=== PATIENT | female | born 1975 | race Caucasian/White ===

== ENCOUNTER → 2024-12-01 09:03 | Outpatient (REF) | payer BC, SELFPAY | LOC: WDC 09:03 | PROVIDERS: ATTENDING PHYSICIAN Physician Assistant | DX: N63.22 Unspecified lump in the left breast, upper inner quadrant (principal) | CPT/HCPCS: 76642; 77062; 77066 ==

== ENCOUNTER → 2024-12-06 07:40 | Outpatient (REF) | payer BC, SELFPAY ==
--- NOTE | 2024-12-06 14:52 | OID.BR.INTR ---
[facility] Breast Navigator - Initial
- -
Date of Contact: 12/06/24
Met with patient. Patient given written information on navigator service available at [facility]. Will follow up as needed per protocol.
== END ==
LOC: WDC 07:40
PROVIDERS: ATTENDING PHYSICIAN Physician Assistant
DX: N63.22 Unspecified lump in the left breast, upper inner quadrant (principal)
CPT/HCPCS: 88305; 19083; 88341; 88342; 88360; A4648

== ENCOUNTER → 2024-12-18 13:38 | Outpatient (REF) | payer BC, SELFPAY | LOC: MRI 3T 13:38 | PROVIDERS: ATTENDING PHYSICIAN Surgery | DX: C50.412 Malignant neoplasm of upper-outer quadrant of left female breast (principal); Z17.1 Estrogen receptor negative status [ER-] | CPT/HCPCS: 77049; A9575 ==

== ENCOUNTER → 2024-12-19 08:25 | Outpatient (REF) | payer BC, SELFPAY | LOC: RAD 08:25 | PROVIDERS: ATTENDING PHYSICIAN Surgery | DX: C50.412 Malignant neoplasm of upper-outer quadrant of left female breast (principal); Z17.1 Estrogen receptor negative status [ER-] | CPT/HCPCS: 71260; 74177; 78306; A9503; Q9967 ==

== ENCOUNTER 2024-12-26 06:21 | Day surgery (SDC) | payer BC, SELFPAY ==
[2024-12-25 13:40] VITALS: BMI 28.1
[2024-12-26] MEDS: NSS 1000 IV (12:32)
[2024-12-26 12:34] VITALS: BMI 28.1
[2024-12-26 12:42] VITALS: BP 126/74
--- NOTE | 2024-12-26 13:47 | PTCARENOTE ---
Patients second IVF bolus not hung because 1st IVF bolus was not completed. The patient was taken to the OR without getting signout from [facility]. [facility] told the OR that they need to speak with Dr. Mae about what to do about giving patient
the second bolus.
[2024-12-26 14:30] VITALS: BP 126/74; BP 126/75
--- NOTE | 2024-12-26 14:35 | W.IMMPOSTOP ---
Surgical Immed Post Op Note
-
Primary Surgeon: Carmelita
Assisting Surgeon: None
Pre-op Diagnosis: Left breast ca
Post-op Diagnosis: Same
Procedure Performed: Insertion right portacath
Anesthesia Type: TIVA
Specimen / Cultures: None
Estimated Blood Loss: 4cc
Complications: None
Operative Findings: None
--- NOTE | 2024-12-26 14:37 | OR.RPT ---
Operative Report
Operative Report
Date of surgery: 12/26/24
Pre-Op DX: Left breast ca
Post-Op DX: Left breast ca
Procedure: Insertion right portacath
Surgeon: Carmelita
The patient is a 49-year-old female with a new diagnosis of left breast carcinoma for which she will undergo neoadjuvant chemotherapy and who presents for insertion of right Port-A-Cath.
The patient presented to the same-day surgical services area where she was prepped for surgery. She verified site and procedure and DVT and antibiotic prophylaxis were provided.
She was taken to the operating room and in the supine position with shoulder roll in place right chest and neck were prepped and draped in usual sterile fashion. Appropriate timeout was performed by all staff. All tissues were anesthetized with 1%
lidocaine plain.
Patient was placed in Trendelenburg position and via Seldinger technique right subclavian vein was entered percutaneously on the third attempt. Guidewire was advanced into the superior vena cava and documented verified using fluoroscopy. The wire
was securely attached to the drapes and an inferior subcutaneous pocket fashion sharply and with the cautery was formed. A single lumen low-profile port cath flushed with heparinized saline was passed placed in the pocket. Catheter was cut to
length of 21 cm using fluoroscopic guidance securely attached to the port and passed to the exit site of the guidewire.
Using fluoroscopic guidance the catheter the guidewire tract was dilated. Then dilator and sheath were passed over the wire. Wire and dilator were removed and the catheter was passed through the tear-away sheath which was removed. Good position
of the tip of the catheter in the superior superior vena cava was noted. The port aspirated and flushed well. She was taken out of Trendelenburg position and subcutaneous tissues were instilled with 0.5% Marcaine plain.
The wound was closed using simple interrupted 3-0 plain on subcutaneous tissue and a running subcuticular 4-0 Monocryl on skin. Surgical glue and a sterile compressive dressing were applied. All sponge needle and instrument counts were correct and
the patient was transferred to the recovery room in stable condition. A stat portable chest x-ray will be obtained on that unit.
([id number])
[2024-12-26 15:00] VITALS: BP 131/80
[2024-12-26 15:15] VITALS: BP 126/72
== END 2024-12-26 15:47 | disposition home or self-care (01) ==
LOC: SDS 06:21
PROVIDERS: ATTENDING PHYSICIAN Surgery
DX: C50.912 Malignant neoplasm of unspecified site of left female breast (principal)
CPT/HCPCS: 36561; 71045; 76000; C1788

== ENCOUNTER → 2025-01-01 10:17 | Outpatient (REF) | payer BC, SELFPAY | LOC: RCS 10:17 | PROVIDERS: ATTENDING PHYSICIAN Internal Medicine Hematology & Oncology; FAMILY PHYSICIAN Family Medicine | DX: C50.112 Malignant neoplasm of central portion of left female breast (principal); R91.1 Solitary pulmonary nodule | CPT/HCPCS: 93306; 93356 ==

== ENCOUNTER 2025-01-08 06:20 | Day surgery (SDC) | payer BC, SELFPAY ==
[2025-01-03 11:57] LABS: INR 0.89; PT 12.6 Sec (11.4-14.6)
[2025-01-03 11:58] LABS: APTT 28.2 Sec (23.4-35.0)
[2025-01-03 14:14] VITALS: BMI 28.3
[2025-01-08] VITALS (10 sets, daily range): BP systolic 123–142; BP diastolic 68–100; BMI 28.2
== END 2025-01-08 16:10 | disposition home or self-care (01) ==
LOC: GI 06:20
PROVIDERS: ATTENDING PHYSICIAN Internal Medicine Critical Care Medicine; FAMILY PHYSICIAN Family Medicine
DX: R91.1 Solitary pulmonary nodule (principal); C34.32 Malignant neoplasm of lower lobe, left bronchus or lung
CPT/HCPCS: 31629; 31628; 31624; 31623; 31627; 31654; 88173; 88305; 36415; 71045; 76000; 81459; 85610; 85730; 87015; 87070; 87102; 87116; 87205; 88112; 88333; 88341; 88342; 94640; C1887

== ENCOUNTER → 2025-01-10 08:10 | Outpatient (REF) | payer BC, SELFPAY ==
[2025-01-10 09:59] LABS: % Basophils 0.9 % (0-2); % Eosinophils 1.2 % (0-6); % Immature Granulocytes 0.5 % (0-0.5); % Lymphocytes 31.5 % (20.5-51.1); % Monocytes 4.7 % (1.7-9.3); % Neutrophils 61.2 % (42.2-75.2); Absolute Basophils 0.1 10^3/uL (0-0.2); Absolute Eosinophils 0.1 10^3/uL (0-0.7); Absolute Lymphocytes 2.5 10^3/uL (1.2-3.4); Absolute Monocytes 0.4 10^3/uL (0.1-0.6); Absolute Neutrophils 4.9 10^3/uL (1.4-6.5); Hematocrit 38.6 % (37.0-47.0); Hemoglobin 12.6 g/dL (12.0-16.0); Mean Corp Hgb Conc. 32.6 g/dL (33.0-37.0); Mean Corpuscular Hgb 28.6 pg (27.0-31.0); Mean Corpuscular Volume 87.7 fL (81.0-99.0); Mean Platelet Volume 9.8 fL (7.4-10.4); Nucleated Red Blood Cells % 0 %; Platelet Count 358 10^3/uL (130-400); Red Cell Dist. Width 13.7 % (11.5-14.5)
[2025-01-10 11:10] LABS: ALT (SGPT) 26 U/L (0-35); AST (SGOT) 19 U/L (14-36); Albumin 4.5 g/dl (3.5-5.0); Alkaline Phosphatase 61 U/L (38-126); Blood Urea Nitrogen 12 mg/dl (7-17); Calcium 9.1 mg/dl (8.4-10.2); Carbon Dioxide 24 mmol/L (22-30); Chloride 106 mmol/L (98-107); Glucose 89 mg/dl (70-99); Potassium 4.5 mmol/L (3.5-5.1); Sodium 142 mmol/L (135-145); Total Bilirubin 0.5 mg/dl (0.2-1.3); Total Protein 6.9 g/dl (6.3-8.2); eGFR > 60.00
== END ==
LOC: REG 08:10
PROVIDERS: ATTENDING PHYSICIAN Internal Medicine Hematology & Oncology; FAMILY PHYSICIAN Family Medicine
DX: C50.112 Malignant neoplasm of central portion of left female breast (principal); R91.1 Solitary pulmonary nodule
CPT/HCPCS: 36415; 80053; 85025

== ENCOUNTER → 2025-01-30 14:26 | Outpatient (REF) | payer BC, SELFPAY ==
[2025-01-30 15:43] LABS: % Basophils 0.6 % (0-2); % Eosinophils 0.2 % (0-6); % Immature Granulocytes 0.5 % (0-0.5); % Monocytes 5.3 % (1.7-9.3); % Neutrophils 73.4 % (42.2-75.2); Absolute Basophils 0.1 10^3/uL (0-0.2); Absolute Lymphocytes 1.8 10^3/uL (1.2-3.4); Absolute Monocytes 0.5 10^3/uL (0.1-0.6); Absolute Neutrophils 6.4 10^3/uL (1.4-6.5); Hematocrit 33.6 % (37.0-47.0); Hemoglobin 10.9 g/dL (12.0-16.0); Mean Corp Hgb Conc. 32.4 g/dL (33.0-37.0); Mean Corpuscular Hgb 28.5 pg (27.0-31.0); Mean Platelet Volume 9.8 fL (7.4-10.4); Nucleated Red Blood Cells % 0 %; Platelet Count 385 10^3/uL (130-400); Red Blood Cell Count 3.82 10^6/uL (4.20-5.40); Red Cell Dist. Width 14.2 % (11.5-14.5); White Blood Cell Count 8.7 10^3/uL (4.8-10.8)
[2025-01-30 15:57] LABS: ALT (SGPT) 24 U/L (0-35); AST (SGOT) 17 U/L (14-36); Albumin 3.8 g/dl (3.5-5.0); Alkaline Phosphatase 62 U/L (38-126); Blood Urea Nitrogen 11 mg/dl (7-17); Calcium 9.2 mg/dl (8.4-10.2); Carbon Dioxide 29 mmol/L (22-30); Chloride 111 mmol/L (98-107); Glucose 103 mg/dl (70-99); Potassium 4.5 mmol/L (3.5-5.1); Sodium 143 mmol/L (135-145); Total Bilirubin 0.3 mg/dl (0.2-1.3); eGFR > 60.00
== END ==
LOC: REG 14:26
PROVIDERS: ATTENDING PHYSICIAN Internal Medicine Hematology & Oncology; FAMILY PHYSICIAN Physician Assistant
DX: C50.112 Malignant neoplasm of central portion of left female breast (principal); R91.1 Solitary pulmonary nodule
CPT/HCPCS: 36415; 80053; 85025

== ENCOUNTER → 2025-02-21 09:18 | Outpatient (REF) | payer BC, SELFPAY ==
[2025-02-21 10:53] LABS: % Basophils 0.4 % (0-2); % Eosinophils 0.4 % (0-6); % Immature Granulocytes 0.4 % (0-0.5); % Lymphocytes 20.8 % (20.5-51.1); % Monocytes 5.3 % (1.7-9.3); % Neutrophils 72.7 % (42.2-75.2); Absolute Lymphocytes 1.1 10^3/uL (1.2-3.4); Absolute Monocytes 0.3 10^3/uL (0.1-0.6); Hematocrit 34.4 % (37.0-47.0); Hemoglobin 11.2 g/dL (12.0-16.0); Mean Corp Hgb Conc. 32.6 g/dL (33.0-37.0); Mean Corpuscular Hgb 29.2 pg (27.0-31.0); Mean Corpuscular Volume 89.6 fL (81.0-99.0); Mean Platelet Volume 9.6 fL (7.4-10.4); Nucleated Red Blood Cells % 0 %; Platelet Count 348 10^3/uL (130-400); Red Blood Cell Count 3.84 10^6/uL (4.20-5.40); Red Cell Dist. Width 15.9 % (11.5-14.5); White Blood Cell Count 5.4 10^3/uL (4.8-10.8)
[2025-02-21 11:21] LABS: ALT (SGPT) 29 U/L (0-35); AST (SGOT) 23 U/L (14-36); Albumin 4.2 g/dl (3.5-5.0); Alkaline Phosphatase 70 U/L (38-126); Blood Urea Nitrogen 13 mg/dl (7-17); Calcium 9.3 mg/dl (8.4-10.2); Carbon Dioxide 25 mmol/L (22-30); Chloride 108 mmol/L (98-107); Glucose 106 mg/dl (70-99); Potassium 4.4 mmol/L (3.5-5.1); Sodium 140 mmol/L (135-145); Total Bilirubin 0.5 mg/dl (0.2-1.3); Total Protein 6.4 g/dl (6.3-8.2); eGFR > 60.00
== END ==
LOC: REG 09:18
PROVIDERS: ATTENDING PHYSICIAN Internal Medicine Hematology & Oncology; FAMILY PHYSICIAN Physician Assistant
DX: C50.112 Malignant neoplasm of central portion of left female breast (principal); R91.1 Solitary pulmonary nodule
CPT/HCPCS: 36415; 80053; 85025

== ENCOUNTER → 2025-03-07 10:34 | Outpatient (REF) | payer BC, SELFPAY | LOC: RAD 10:34 | PROVIDERS: ATTENDING PHYSICIAN Internal Medicine Hematology & Oncology; FAMILY PHYSICIAN Physician Assistant | DX: C50.112 Malignant neoplasm of central portion of left female breast (principal); R91.1 Solitary pulmonary nodule; C34.12 Malignant neoplasm of upper lobe, left bronchus or lung | CPT/HCPCS: 71260; Q9967 ==

== ENCOUNTER → 2025-03-13 14:26 | Outpatient (REF) | payer BC, SELFPAY ==
[2025-03-13 15:39] LABS: % Basophils 0.5 % (0-2); % Eosinophils 0.2 % (0-6); % Immature Granulocytes 0.2 % (0-0.5); % Lymphocytes 28.1 % (20.5-51.1); % Monocytes 5.5 % (1.7-9.3); % Neutrophils 65.5 % (42.2-75.2); Absolute Lymphocytes 1.6 10^3/uL (1.2-3.4); Absolute Monocytes 0.3 10^3/uL (0.1-0.6); Absolute Neutrophils 3.7 10^3/uL (1.4-6.5); Hematocrit 29.4 % (37.0-47.0); Hemoglobin 10.1 g/dL (12.0-16.0); Mean Corp Hgb Conc. 34.4 g/dL (33.0-37.0); Mean Corpuscular Volume 87.2 fL (81.0-99.0); Nucleated Red Blood Cells % 0 %; Platelet Count 198 10^3/uL (130-400); Red Blood Cell Count 3.37 10^6/uL (4.20-5.40); Red Cell Dist. Width 17.5 % (11.5-14.5); White Blood Cell Count 5.6 10^3/uL (4.8-10.8)
[2025-03-13 15:58] LABS: ALT (SGPT) 26 U/L (0-35); AST (SGOT) 24 U/L (14-36); Albumin 4.2 g/dl (3.5-5.0); Alkaline Phosphatase 62 U/L (38-126); Blood Urea Nitrogen 9 mg/dl (7-17); Calcium 8.9 mg/dl (8.4-10.2); Carbon Dioxide 26 mmol/L (22-30); Chloride 109 mmol/L (98-107); Glucose 104 mg/dl (70-99); Potassium 3.9 mmol/L (3.5-5.1); Sodium 142 mmol/L (135-145); Total Bilirubin 0.5 mg/dl (0.2-1.3); Total Protein 6.1 g/dl (6.3-8.2); eGFR > 60.00
== END ==
LOC: REG 14:26
PROVIDERS: ATTENDING PHYSICIAN Internal Medicine Hematology & Oncology; FAMILY PHYSICIAN Physician Assistant
DX: C50.112 Malignant neoplasm of central portion of left female breast (principal); R91.1 Solitary pulmonary nodule
CPT/HCPCS: 36415; 80053; 85025

== ENCOUNTER → 2025-03-28 09:33 | Outpatient (REF) | payer BC, SELFPAY | LOC: RCS 09:33 | PROVIDERS: ATTENDING PHYSICIAN Internal Medicine Cardiovascular Disease; FAMILY PHYSICIAN Family Medicine | DX: Z85.3 Personal history of malignant neoplasm of breast (principal); C34.92 Malignant neoplasm of unspecified part of left bronchus or lung; T45.1X5D Adverse effect of antineoplastic and immunosuppressive drugs, subsequent encounter | CPT/HCPCS: 93306; 93356 ==

== ENCOUNTER → 2025-04-04 11:49 | Outpatient (REF) | payer BC, SELFPAY ==
[2025-04-04 12:42] LABS: Hematocrit 30.0 % (37.0-47.0); Hemoglobin 9.8 g/dL (12.0-16.0); Mean Corp Hgb Conc. 32.7 g/dL (33.0-37.0); Mean Corpuscular Volume 94.9 fL (81.0-99.0); Platelet Count 238 10^3/uL (130-400); Red Cell Dist. Width 19.1 % (11.5-14.5)
[2025-04-04 12:43] LABS: Nucleated Red Blood Cells % 0 %
[2025-04-04 13:16] LABS: ALT (SGPT) 35 U/L (0-35); AST (SGOT) 25 U/L (14-36); Albumin 4.3 g/dl (3.5-5.0); Alkaline Phosphatase 68 U/L (38-126); Blood Urea Nitrogen 8 mg/dl (7-17); Calcium 9.3 mg/dl (8.4-10.2); Carbon Dioxide 27 mmol/L (22-30); Chloride 108 mmol/L (98-107); Glucose 107 mg/dl (70-99); Potassium 4.5 mmol/L (3.5-5.1); Sodium 139 mmol/L (135-145); Total Protein 6.5 g/dl (6.3-8.2); eGFR > 60.00
== END ==
LOC: REG 11:49
PROVIDERS: ATTENDING PHYSICIAN Internal Medicine Hematology & Oncology; FAMILY PHYSICIAN Physician Assistant
DX: C50.112 Malignant neoplasm of central portion of left female breast (principal); R91.1 Solitary pulmonary nodule
CPT/HCPCS: 36415; 80053; 85025

== ENCOUNTER → 2025-05-02 09:49 | Outpatient (REF) | payer BC, SELFPAY ==
[2025-05-02 11:00] LABS: Hematocrit 32.3 % (37.0-47.0); Hemoglobin 10.6 g/dL (12.0-16.0); Mean Corp Hgb Conc. 32.8 g/dL (33.0-37.0); Mean Corpuscular Volume 98.2 fL (81.0-99.0); Platelet Count 243 10^3/uL (130-400); Red Cell Dist. Width 17.2 % (11.5-14.5)
[2025-05-02 11:47] LABS: Nucleated Red Blood Cells % 0 %
== END ==
LOC: REG 09:49
PROVIDERS: ATTENDING PHYSICIAN Thoracic Surgery (Cardiothoracic Vascular Surgery)
DX: Z01.818 Encounter for other preprocedural examination (principal)
CPT/HCPCS: 36415; 85025

== ENCOUNTER 2025-05-09 05:10 | Inpatient (IN) | payer BC, SELFPAY ==
[2025-04-24 12:10] VITALS: BMI 27.9
[2025-04-24 12:49] LABS: Hematocrit 26.5 % (37.0-47.0); Hemoglobin 8.8 g/dL (12.0-16.0); Mean Corp Hgb Conc. 33.2 g/dL (33.0-37.0); Mean Corpuscular Volume 97.4 fL (81.0-99.0); Nucleated Red Blood Cells % 0 %; Platelet Count 177 10^3/uL (130-400); Red Cell Dist. Width 19.3 % (11.5-14.5)
[2025-04-24 13:02] LABS: INR 0.94; PT 12.9 Sec (11.4-14.6)
[2025-04-24 13:18] LABS: Urine Character Clear (Clear)
--- NOTE | 2025-04-24 13:26 | CM ---
Met with Mrs. Landeros in [facility]. She states prior to admission she resides with her spouse and three children in a two story home with two steps to enter. She states she has a full flight of steps to get to bedroom/full bathroom. She states she has
a powder room on the first floor. She states prior to admission she was independent with ambulation and adls. She states she does not have any DME in the home. She states she has a prescription plan. She states her spouse works from home and will
be available to assist in her care if needed. The discharge plan is to return home with her spouse and children ans a home visit by the Transitional Care Nurse when medically stable.
We reviewed pre-op and post-op routines. We reviewed the shower instructions. She has the soap and written instructions. She already has the Thoracic Lung Surgery Educational Booklet. We also reviewed restrictions including driving and lifting
restrictions. We discussed a home visit by the Transitional Care Nurse. She is agreeable to a home visit. The plans is for robotic assisted left lower lobectomy on 05/09/25.
[2025-04-24 14:13] LABS: Glycohemoglobin (HgbA1c) 5.5 % (4.0-5.6)
[2025-04-24 16:15] LABS: ALT (SGPT) 35 U/L (0-35); AST (SGOT) 29 U/L (14-36); Albumin 3.9 g/dl (3.5-5.0); Alkaline Phosphatase 71 U/L (38-126); Blood Urea Nitrogen 9 mg/dl (7-17); Calcium 8.6 mg/dl (8.4-10.2); Carbon Dioxide 27 mmol/L (22-30); Chloride 106 mmol/L (98-107); Estimated Creatinine Clearance 109 ml/min; Glucose 96 mg/dl (70-99); Potassium 4.3 mmol/L (3.5-5.1); Sodium 139 mmol/L (135-145); Total Protein 5.9 g/dl (6.3-8.2); eGFR > 60.00
[2025-05-09] VITALS (14 sets, daily range): BP systolic 115–143; BP diastolic 65–82; BMI 28.5
--- NOTE | 2025-05-09 05:30 | PTCARENOTE ---
pt admitted into room 2260, VS and weight obtained. pt confirms 2 showers at home and NPO since midnight. clip prep completed, CHG wipes done. ABO drawn and sent. admission questions and med rec completed. pt confirms she takes no medications at
home and her last chemotherapy treatment was 2 weeks ago.
[2025-05-09] MEDS: IMODIUM 2 MG PO (06:12)
--- NOTE | 2025-05-09 06:16 | W.CVOR.SURPR ---
CVOR Surgeon Immed Pre Op
-
I have examined this patient prior to performance of the scheduled procedure.
The patient's condition is unchanged from the time of the dictated/written History and
Physical and the patient is able to undergo the scheduled procedure.
RATS LLL Sup Seg + LN
[2025-05-09 07:19] LABS: Urine Character Clear (Clear)
--- NOTE | 2025-05-09 09:29 | W.PN.CT.SURG ---
CT Surgery Operative Note
-
THORACIC SURGERY OPERATIVE REPORT
Preoperative Diagnosis: Primary lung cancer, adenocarcinoma
Postoperative Diagnosis: Same
Procedure(s) Performed:
1. Robotic assisted thoracic surgery [R ATS]
2. Superior segmentectomy [S6] of the left lower lobe based on ICG demarcated perfusion lines
3. Radical lymphadenectomy
4. Intercostal nerve block performed by anesthesia
Date of Surgery: 05/09/2025
Comorbidities:
1. Breast cancer, on chemotherapy and immunotherapy
2. Primary lung cancer
3. Psoriasis
4. Postchemotherapy cytopenia
Attending Surgeon: Kvng Richter MD, MS
Assistants: Kimberly Ramirez PA-C (present and necessary to trust administrative assistant, exchanging robotic instruments, retraction, suction, exposure, suture management, and wound closure under my direction)
Anesthesiology: Gregg Mariscal MD and Cherie Cummins CRNA
Scrub and Circulating RNs: Marta Rivers RN, Yudith Shankar RN
Anesthesia: Dual Lumen GETA
EBL: 50 cc
Products: None
Indication(s) for Procedures: This is a 49-year-old female who was diagnosed with HER2 positive breast cancer as well as a primary non-small cell lung cancer of the left lower lobe in the superior segment. She had undergone treatment for her breast
cancer including immunotherapy and chemotherapy preoperatively. She was planned for staged lung resection first and then follow-up resection for her breast cancer. Given the location and size of the mass located in the periphery in the superior
segment the left lower lobe, I offered her segmentectomy.
Findings: There were no obvious intrathoracic lesions concerning for metachronous disease. She had a well-developed fissure. Lymph nodes were harvested around the hilum and in the fissure. There were 2 main branches leading to the superior
segment of the left lower lobe coming off the basilar pulmonary artery. These were sequentially resected using white load staplers. Next ICG was then injected and by anesthesia transvenously and there was a well-demarcated ischemic perfusion line
of the superior segment (S6) of the left lower lobe. This was marked with bipolar cautery and using multiple loads of green staplers we resected along this line. The specimen was then placed into an Endo Catch bag and removed from the field.
Manual palpation of the mass demonstrated approximately 1 cm mass located the periphery of the lung tissue. The staple line margin was at least 3 cm away. Additional lymph nodes were then harvested. Hemostatic topical sealant was placed over top
of the staple line and hilum and a chest tube was placed. There is no air leak at the inclusion of the case and no loss of tidal volume.
Specimen(s):
Station 9, x 4 nodes
Station 10, x 3 nodes
Station 11S, x 2 nodes
Station 5/6, x 1 nodes
Superior segment the left lower lobe
Description of Procedure: The patient was taken to the operating room. Induction via general anesthesia with endotracheal intubation was performed and peripheral venous access and arterial monitoring were inserted. Their identity and procedure to be
performed were verified and they were positioned with the left side up on the operating table. The patient was then prepped and draped in a sterile fashion. A preoperative time-out was performed with all members of the team present. A Veress needle
was used to insufflate the chest after isolating the lung. An 8 mm port was placed in the midaxillary line at approximately the eighth intercostal space and confirmed to be intrathoracic without significant pulmonary injury. The chest was surveyed
for any evidence of metastatic disease. Patient tolerate insufflation without complication. 2 additional 12 mm trocars were placed on either side under camera guidance and a third 8 mm trocar was placed along the back. A 12 mm pediatric physician assistant port was
placed in the 11th intercostal space above the insertion of the diaphragm.
The thoracic cavity was inspected for evidence of metastatic disease. None was observed. We started with mobilization of the inferior pulmonary ligament. We worked our way clockwise dissecting out the hilum and harvest any lymph nodes identified.
I then dissected down the fissure the left upper and lower lobes. There were 2 major pulmonary arterial branches coming off the basilar artery heading towards the superior segment of the left lower lobe. These were sequentially
dissected and then encircled with a vessel loop and then taken with a white load stapler. At this point, ICG was then injected in by anesthesia transvenously and I observed for the margin indicated by perfusion lines demarcating an ischemic zone of
the left lower lobe at the superior segment. The mass was well incorporated into this ischemic zone. I then marked this area with bipolar cautery and firefly was then turned off. Using multiple green load staplers I then transected along this
demarcated line. The specimen was displaced toward the apex while a chest tube was inserted and placed laterally towards the apex. An Endo Catch bag was then brought into the field and the mass was fully removed from the chest cavity. Manual
palpation the mass demonstrated that it was located the periphery with at least a 3 cm margin from the staple line. CoSeal was used to reinforce the staple lines and hilum. After confirming hemostasis, the lung was fully inflated and all ports were
removed. Incisions were closed in 3 layers including the fascia, dermal, and epidermis. Additional local anesthesia was injected into all incision sites. The skin wound was cleansed and sealed with Dermabond glue.
All instrument, sponge, and needle counts were confirmed to be correct x 2 at the end of the operation. The patient was transferred to the cardiac intensive care unit extubated in critical but stable condition.
I, Dr. Kvng Richter, was present, scrubbed for, and performed all critical elements of this procedure.
Kvng Richter MD, MS
Cardiothoracic Surgeon
[facility]
This operative dictation was created using the Spondo dictation system. Please excuse any grammatical, typographical, or 'sound alike' errors
[2025-05-09] MEDS: ZOFRAN 4 MG IV (10:12)
[2025-05-09] MEDS: DILAUDID 0.5 MG IV ×2 (10:13→11:32)
[2025-05-09] MEDS: ANCEF IV (10:23)
--- NOTE | 2025-05-09 11:04 | CM ---
Chart reviewed. Patient is in the OR today. Patient is independent of ADLS, lives with her in a 3 STH, 2 ARLEN, 0 DME. Plan is for the patient to return home with CT Transitional RN. CM to follow
[2025-05-09] MEDS: FLEXERIL 5 MG PO (11:26)
[2025-05-09] MEDS: NEURONTIN 100 MG PO ×3 (11:27→21:25)
[2025-05-09] MEDS: ANCEF 10 IV (11:27)
[2025-05-09] MEDS: LOPRESSOR 12.5 MG PO ×2 (11:27→19:52)
[2025-05-09 11:39] LABS: B.E. - POC 2.5 mmol/L; Glucose - POC 101 mg/dl (70-99); HCO3 - POC 28 mmol/L (21-28); Hematocrit - POC 22 % PCV (37-47); Hemodilution- POC No; Hemoglobin Calculated - POC 7.4; Ionized Calcium - POC 1.13 mmol/L (1.15-1.33); Lactate - POC 0.52 mmol/L (0.36-0.75); O2 Saturation %Calculated-POC 99.9 % (94-98); PCO2 - POC 44 mmHg (35-48); PO2 - POC 283 mmHg (83-108); Potassium - POC 2.6 mmol/L (3.5-5.1); Sodium - POC 145 mmol/L (136-145); Specimen Type - POC Arterial; pH - POC 7.40 (7.35-7.45)
--- NOTE | 2025-05-09 11:52 | PTCARENOTE ---
Received pt to room from PACU. AAO x 3 , drowsy but appropriate. SR on monitor. 2 L NC 99%. Rt radial A line transduced, re leveled, recalibrated, and flushed. Lt lateral chest tube to water seal. No air leak or crepitus noted. Pulses
palpable. C/o pain at chest tube site. Medicated as able.
--- NOTE | 2025-05-09 13:10 | CON.INTV ---
Consultation
Consultation Request
Date/Time Consultation Requested: 05/09
Date/Time Consultation Performed: 05/09
Reason for Consultation: Postthoracotomy, pulmonary
Medical History
-
History of Present Illness:
History primarily obtained from the records as patient is currently postoperative, but some history also obtained from the patient. Patient is a pleasant 49-year-old female with history of left breast cancer, initially diagnosed as stage IIa, HER2
positive/ER/OR negative. She was noted to have a 1.1 cm left lower lobe nodule PET avid. She underwent bronchoscopy in December which identified lung cancer, lipidic pattern, early stage, no mediastinal involvement, no metastatic disease. She
initially underwent treatment with carboplatin/Taxotere which was completed April 26. She is now status post robotic assisted thoracic surgery with left lower lobe superior segmentectomy and lymph node dissection 05/09 without complications. We are
asked to help from pulmonary standpoint
Presently primary complaint is pain otherwise she denies shortness of breath, nausea. Family at bedside
.
[facility] left breast cancer stage IIa status post chemotherapy from December to April of 2025. History of psoriasis. , tubal ligation, miscarriage, ovarian cyst removal, tonsillectomy. Right port placement December 2024
Past Medical History
Past Medical History: None (See above)
Past Surgical History: None (See above)
Social History
Tobacco: Non-smoker
Alcohol: Occasional
Drug: None
Personal:
Living: With Family
Employment: Not Employed
Family History
Family History: Other (Father with history of pancreatic cancer, paternal grandmother with history of lung cancer/mesothelioma, maternal grandmother with ovarian cancer, sister with cervical cancer.)
Allergies / Home Medications
Allergies
Allergy/AdvReac Type Severity Reaction Status Date / Time
No Known Allergies Allergy Verified 04/20/25 13:31
Home Medications
�Medication �Instructions �Recorded �Confirmed �Last Taken �Type
valacyclovir 1 gram tablet 1,000 mg PO PRN PRN Break out 12/25/24 04/20/25 01/01/25 History
(Valtrex)
dexamethasone 1 dose PO PRN PRN pre and post 04/20/25 04/20/25 Unknown History
chemo
Review of Systems
-
All other systems: Negative unless noted
Vitals / Labs / Diagnostic Testing
Vital Signs
Temp Pulse Resp BP Pulse Ox
97.6 F 75 0 118/72 98
05/09/25 11:36 05/09/25 12:15 05/09/25 12:15 05/09/25 12:00 05/09/25 12:15
Lab Data
04/24/25 12:20
04/24/25 12:20
Diagnostic Testing:
Physical Exam
-
HEENT: Normocephalic and Anicteric
Cardiovascular: S1/S2, Regular Rhythm and Murmur (n)
Respiratory: Wheeze (n), Rales (n), Rhonchi (n) and Non-Labored Respirations
GI: Soft, Non Distended and Non Tender
Neurology: Awake, Alert and No Motor Deficits (Moves extremities)
Skin: Other (Chest tube in place)
General: Comfortable
Assessment
-
49-year-old female with history of left breast cancer stage II, ER/OR negative, HER2 positive, status post RATS left lower lobe segmentectomy for pulmonary adenocarcinoma 05/09/2025
S/p RATS left lower lobe segmentectomy 05/09/2025
Pulmonary adenocarcinoma per robotic bronchoscopy December 2024
1.1 cm nodule left lower lobe
Positive EGFR mutation
Conditions present prior to admission
History of miscarriage, D&C
History of pneumonia
Family history of cancer
Father with pancreatic cancer, PGM with lung cancer/mesothelioma, MGM with ovarian cancer, sister with cervical cancer
Positive CFTR mutation (autosomal recessive)
Plan/recommendations
At this time, patient remains critically ill but appears to be comfortable. Hemodynamically stable. Chest tube in place, minimal drainage
Chest x-ray without acute findings
Hemoglobin preoperatively 10.6
EKG preoperatively normal sinus rhythm
Moving forward
Continue with management per CT surgery
No pneumothorax per x-ray, chest tube in place
Follow hemoglobin, follow labs
Await final pathology. EGFR mutation noted on initial bronchoscopy December 2024
DVT prophylaxis: Subcutaneous heparin
We will follow
[2025-05-09] MEDS: HEPARIN 5000 UNITS SC ×2 (15:25→23:51)
[2025-05-09] MEDS: TYLENOL 1000 MG PO ×2 (15:25→21:25)
[2025-05-09] MEDS: ANCEF 5 IV ×2 (15:26→23:51)
--- NOTE | 2025-05-09 16:27 | PTCARENOTE ---
OOb x 1 assist, pt states general weakness but otherwise ok. Chest tube with minimal drainage at present. Able to void w/o issue. VSS. Tearful at times. VAT team called to access RT SQ port
[2025-05-09 16:32] LABS: Blood Urea Nitrogen 9 mg/dl (7-17); Calcium 8.1 mg/dl (8.4-10.2); Carbon Dioxide 24 mmol/L (22-30); Chloride 104 mmol/L (98-107); Estimated Creatinine Clearance > 125 ml/min; Glucose 150 mg/dl (70-99); Potassium 3.3 mmol/L (3.5-5.1); Sodium 138 mmol/L (135-145); eGFR > 60.00
[2025-05-09] MEDS: TORADOL 15 MG IV (17:27)
[2025-05-09] MEDS: KCL 40 MEQ PO (19:11)
--- NOTE | 2025-05-09 21:00 | PTCARENOTE ---
Assumed care of pt from dayshift RN. Walking rounds completed. Pt AAOx3. ABURTO. No significant pain at this time. SR on the tele monitor. HR 80-90s. BP stable. Palpable pulses throughout. No edema noted. Pt 95% on RA. Left lateral CT to water seal, no
airleak noted, and output appropriate. Left lung sounds diminished throughout. Deep breathing and IS encouraged. Abdomen nontender. +BS x4. Pt tolerating diet. Voiding w/o issue. Pt reports diarrhea from the night before but none today. All surgical
sites stable. Right upper chest subQ port accessed. All surgical sites stable. Pt assisted OOB to the bathroom and positioned back into bed. See worklist for full nursing assessment and interventions. Call woo within reach.
[2025-05-10] MEDS: FLEXERIL 5 MG PO (00:06)
--- NOTE | 2025-05-10 00:10 | PTCARENOTE ---
No acute change in assessment. Pt is SR on the tele monitor. HR 80s. BP stable. Left lateral CT assessment unchanged. Pt is 95% on RA. All surgical sites stable. Pt assisted OOB to void and then repositioned back into bed. Flexeril for pain - see
MAR. Call woo within reach.
[2025-05-10 04:29] VITALS: BP 143/89
[2025-05-10] MEDS: TORADOL 15 MG IV (04:32)
[2025-05-10 04:45] LABS: Hematocrit 24.3 % (37.0-47.0); Hemoglobin 8.2 g/dL (12.0-16.0); Mean Corp Hgb Conc. 33.7 g/dL (33.0-37.0); Mean Corpuscular Volume 98.4 fL (81.0-99.0); Platelet Count 101 10^3/uL (130-400); Red Cell Dist. Width 18.0 % (11.5-14.5)
[2025-05-10 04:49] VITALS: BMI 29.0
--- NOTE | 2025-05-10 04:58 | PTCARENOTE ---
No acute changes in assessment. Pt is SR on the tele monitor. HR 80s. BP stable. Pt is 95-96% on RA. Left lateral CT assessment unchanged. Labs drawn and sent. Toradol for pain - see NOV. Pt assisted OOB with stand-by assist and then repositioned
back into bed. Call woo within reach.
[2025-05-10 05:16] LABS: Blood Urea Nitrogen 12 mg/dl (7-17); Calcium 8.1 mg/dl (8.4-10.2); Carbon Dioxide 26 mmol/L (22-30); Chloride 108 mmol/L (98-107); Estimated Creatinine Clearance > 125 ml/min; Glucose 120 mg/dl (70-99); Magnesium 1.3 mg/dl (1.6-2.3); Potassium 3.5 mmol/L (3.5-5.1); Sodium 139 mmol/L (135-145); eGFR > 60.00
[2025-05-10] MEDS: TYLENOL 1000 MG PO (06:34)
--- NOTE | 2025-05-10 07:17 | W.PN.INTV ---
Today's Communication / Plan
Recommendations
Transfuse per CT surgery protocol
Pain control
Chest tube without airleak, small left-sided pneumothorax noted
Follow-up with Dr. Bianchi in the next 2 to 3 months
We will sign off. Please call with questions
Assessment
-
49-year-old female with history of left breast cancer stage II, ER/FL negative, HER2 positive, status post RATS left lower lobe segmentectomy for pulmonary adenocarcinoma 05/09/2025
S/p RATS left lower lobe segmentectomy 05/09/2025
Pulmonary adenocarcinoma per robotic bronchoscopy December 2024
1.1 cm nodule left lower lobe
Positive EGFR mutation
Postoperative anemia
Conditions present prior to admission
History of miscarriage, D&C
History of pneumonia
Family history of cancer
Father with pancreatic cancer, PGM with lung cancer/mesothelioma, MGM with ovarian cancer, sister with cervical cancer
Positive CFTR mutation (autosomal recessive)
Plan/recommendations
At this time, patient appears to be comfortable, on room air
Chest x-ray without acute findings
Hemoglobin preoperatively 10.6, currently 8.2
EKG preoperatively normal sinus rhythm
Chest x-ray without acute findings
no airleak with chest tube, small left-sided pneumothorax noted per chest x-ray
Moving forward
Continue with management per CT surgery
Chest tube management per surgery
Follow hemoglobin, transfuse per CT surgery protocol
Await final pathology. EGFR mutation noted on initial bronchoscopy December 2024
DVT prophylaxis: Subcutaneous heparin
Patient should follow-up with Dr. Binachi as previously scheduled
We will sign off. Please call with questions
Subjective Dataa
Subjective Data
Date of Service:
Date of Service: May 10, 2025
Subjective:
Patient is sitting in chair, appears to be comfortable. Denies significant shortness of breath. Pain is controlled. Denies nausea, abdominal pain. Presently on room air
Objective Data
Data Reviewed
Vital Signs / I&O / Oxygen:
Vital Signs
Temp Pulse Resp BP Pulse Ox
98.5 F 90 16 143/89 96
05/10/25 04:29 05/10/25 06:45 05/10/25 04:29 05/10/25 04:29 05/10/25 04:29
Intake and Output
05/09/25 05/10/25 05/11/25
06:59 06:59 06:59
Intake Total 1295 / 1295
Output Total 2470 / 2470
Balance -205 / -205 -1175 / -1175
SaO2 96
Nasal Cannula flow liters per 2
minute
Physical Exam
General: Comfortable
HEENT: Normocephalic and Anicteric
Cardiovascular: S1-S2, Regular Rhythm, Murmur (n), Rub (n) and Peripheral Edema (n)
Respiratory: Wheeze (n), Crackles (n), Rhonchi (n), Non-Labored Respirations and Chest Tube (No airleak)
GI: Soft, Non Distended and Non Tender
Neurology: Awake, Alert and No Motor Deficits
Skin: Cyanosis (n) and Rash (n)
Labs/Micro/Reports
Lab Data
05/10/25 04:39
05/10/25 04:39
--- NOTE | 2025-05-10 07:29 | W.PN.CT ---
Today's Communication / Plan
-
-pod #1
-no issues overnight, ambulated without problems
-L pleur CT on water seal, no air leak, put out 75/220 in 12/24 hrs
-follow CXR
-encourage IS
-ambulate
Assessment / Plan
-
- Primary lung cancer, adenocarcinoma- s/p Robotic assisted thoracic surgery [RATS]; Superior segmentectomy [S6] of the left lower lobe based on ICG demarcated perfusion lines; Radical lymphadenectomy by Dr. Richter on 05/09/25, pod #1
- Breast cancer, on chemotherapy and immunotherapy
- Primary lung cancer
- Psoriasis
- Postchemotherapy cytopenia
- Acute on chronic postop blood loss anemia
- Acute postop thrombocytopenia
- Acute postop hypokalemia
Discussed patient care with: Nursing and Care Team
Subjective
-
Date of Service: May 10, 2025
Objective Data
-
Lab Results
05/10/25 04:39
05/10/25 04:39
PT 12.9 Sec (11.4-14.6) 04/24/25 12:20
INR 0.94 04/24/25 12:20
Vital Signs
Vital Signs
Temp Pulse Resp BP Pulse Ox
98.5 F 90 16 143/89 96
05/10/25 04:29 05/10/25 06:45 05/10/25 04:29 05/10/25 04:29 05/10/25 04:[address]
CT Intake/Output/Weight
05/09/25 05/10/25 05/10/25
18:59 06:59 18:59
Intake Total 1295 / 1295
Output Total 945 / 2470 1525 / 2470
Balance 350 / -1175 -1525 / -1175
SaO2: 96
Physical Exam
-
General: Awake and AOx3
Cardiovascular: Regular rate & rhythm, No Murmurs and No Rub
Respiratory: Rhonchi (on L. No wheeze b/l) and Decreased Breath Sounds
Incision: Clean, Dry and Dressing Intact
Extremities: No Edema
Data Reviewed
-
Lab Results: Results Reviewed
Medications: Active Meds Reviewed
Chest X-Ray: Report Reviewed and Image Reviewed
ECG: Report Reviewed and Image Reviewed
[2025-05-10 07:52] VITALS: BP 126/76
[2025-05-10] MEDS: ANCEF 5 IV (07:55)
[2025-05-10] MEDS: HEPARIN 5000 UNITS SC (07:57)
[2025-05-10] MEDS: LOPRESSOR 12.5 MG PO (07:59)
[2025-05-10] MEDS: KCL 40 MEQ PO (07:59)
[2025-05-10] MEDS: NEURONTIN 100 MG PO (07:59)
--- NOTE | 2025-05-10 08:28 | PTCARENOTE ---
Assumed care of patient from career coordinator RN. AAO x 3 SR on monitor. Room air 98%, denies cough or sputum. Chest tube clamped per CT surgery. Denies significant pain at present. Pulses palpable. Plan for am discussed.
--- NOTE | 2025-05-10 10:53 | PTCARENOTE ---
Lt lateral chest tube removed by CT PRISM MEASURER, Pt tolerated w/o issue. Resting in bed after. VSS Assessment otherwise unchanged from prior.
[2025-05-10 11:50] VITALS: BP 110/65
--- NOTE | 2025-05-10 12:02 | PTCARENOTE ---
Ambulating at lucita in room w/o issue. Pain well managed. VSS. Assessment otherwise unchanged from prior.
--- NOTE | 2025-05-10 12:36 | CM ---
Chart reviewed. Patient is independent of ADLS, lives with her and 3 children in a 2 STH, 2 ARLEN, 0 DME. Plan is for the patient to return home with CT Transitional RN. CM to follow
--- NOTE | 2025-05-10 13:44 | W.DCSUMMARY ---
Discharge Summary
Discharge Data
Date of Admission: 05/09/25
Date of Discharge: 05/10/25
-
Pending Results: No
Hospital Course
Primary care physician: Erika Stuart
Outpatient laborer ammunition assembly: Polina See
Outpatient Oncologist: Cynthia Adams
Inpatient consultants: Pulmonary Referral Rn
Procedures:
1. RATS Superior segmentectomy [S6] of the left lower lobe based on ICG demarcated perfusion lines and radical lymphadenectomy
Primary Diagnosis:
1. Primary lung cancer, adenocarcinoma
Secondary Diagnoses:
1. Left Breast cancer, on chemotherapy and immunotherapy
2. Psoriasis
3. Postchemotherapy cytopenia
- Acute on chronic postop blood loss anemia
- Acute postop thrombocytopenia
- Acute postop hypokalemia
- Acute postop tiny left apical pneumothorax
HPI: 49-year-old female with known diagnosis of HER2 positive breast cancer (treated with carboplatin?/Taxotere/ Phesgo-last dose 04/26/25) as well as incidental finding on CT scan of primary non-small cell lung cancer left lower lobe superior
segment was admitted on 05/09/2025 for left lower lobe lobectomy.
Hospital course: Patient was taken to the operating room and underwent robotic assisted superior segmentectomy and radical lymphadenectomy by Dr. Kvng Richter. For further details please see operative note. She is extubated the operating room.
Chest tube placed to waterseal with no air leak noted. Arterial line was discontinued upon arrival to CVICU. Patient has stable night and chest tube was clamped on postoperative day #1. Beta-karyn was initiated for atrial fibrillation
prophylaxis. Repeat x-ray reported tiny left apical pneumothorax. Chest tube was removed and follow-up chest x-ray reported tiny left apical pneumothorax unchanged. Patient was deemed stable for discharge to home. She will have a follow-up chest
x-ray in 1 week.
Home medication changes:
Gabapentin, oxycodone, cyclobenzaprine for postop pain
Metoprolol for A-fib prophylaxis
Discharge Plan
-
Patient Disposition: Home (Routine Discharge)
Discharge Diagnosis/Procedures: RATS LLL superior segmentectomy (05/09/25)
Condition: Good
Diet: No restrictions
Activity: No strenuous activity
Driving Restrictions: Not until seen by your Dr
Bathing Restrictions: OK to Shower
Others Tests: CXR (PA & LAT) in 1 week
Referrals:
CT Transitional Care Nurse [Outside]
Referral Note: The Cardiothoracic Transitional Care Nurse will call you to set up a visit in 1-2 days.
Alberto Onofre MD [Active, Pulmonary Medicine]
Referral Note: 2-3 mo
Mally Cervantes PA [Family Provider, Family Practice]
Kvng Richter MD [Active, Cardiac Surgery] - 05/28/25 2:00 pm
Prescriptions:
New
acetaminophen 325 mg Tablet
650 mg PO Q4HPRN PRN (Reason: mild pain,headache,temp >101F ) Qty: 0 0RF
cyclobenzaprine 10 mg Tablet
5 mg PO Q8HPRN PRN (Reason: muscle spasm) Qty: 10 0RF
metoprolol succinate [Toprol XL] 25 mg tablet extended release 24 hr
25 mg PO DAILY Qty: 30 1RF
gabapentin 100 mg Capsule
100 mg PO TID Qty: 30 0RF
oxycodone 5 mg Tablet
2.5 mg PO Q4HPRN PRN (Reason: severe pain) Qty: 15 0RF
Continued
valacyclovir [Valtrex] 1 gram Tablet
1,000 mg PO PRN PRN (Reason: Break out)
dexamethasone
1 dose PO PRN PRN (Reason: pre and post chemo)
Rx Instructions:
Patient to bring medication information on 04/24/25
Discharge Orders:
Discharge Patient (As Directed); Ordered 05/10/25
Ordered By: Suly Saldaña
Care Plan Goals
Care Plan Goals:
Problem: Readiness for enhanced knowledge related to diagnosis and treatment plan
Goal: Understand your diagnosis and treatment plan needs, including medications if applicable.
Instructions: Know your diagnosis, underlying causes and treatment plan options, including medications if applicable. Consult with your health care team to learn about your diagnosis and treatment plan, including medications if applicable.
Discharge Date and Time
Print Language: NAURUAN
--- NOTE | 2025-05-10 15:16 | PTCARENOTE ---
Discharge instructions reviewed with PT , Questions answered, states understanding. Telemetry pack removed, SQ port de accessed by VAT team.
== END 2025-05-10 15:14 | disposition home or self-care (01) | DRG 164 ==
LOC: CVICU 05:10
PROVIDERS: Nurse Practitioner; ADMITTING PHYSICIAN Thoracic Surgery (Cardiothoracic Vascular Surgery); CONSULT PHYSICIAN Internal Medicine Critical Care Medicine; FAMILY PHYSICIAN Physician Assistant
PROC: 8E0W4CZ Robotic Assisted Procedure of Trunk Region, Percutaneous Endoscopic Approach (ICD-10-PCS; 2025-05-09)
PROC: 0BBJ4ZZ Excision of Left Lower Lung Lobe, Percutaneous Endoscopic Approach (ICD-10-PCS; 2025-05-09)
PROC: 07T74ZZ Resection of Thorax Lymphatic, Percutaneous Endoscopic Approach (ICD-10-PCS; 2025-05-09)
DX: C34.32 Malignant neoplasm of lower lobe, left bronchus or lung (principal); D62 Acute posthemorrhagic anemia; J95.811 Postprocedural pneumothorax; L40.9 Psoriasis, unspecified; C50.912 Malignant neoplasm of unspecified site of left female breast; D69.59 Other secondary thrombocytopenia; E87.6 Hypokalemia; Y84.8 Other medical procedures as the cause of abnormal reaction of the patient, or of later complication, without mention of misadventure at the time of the procedure; Z17.1 Estrogen receptor negative status [ER-]; Z17.22 Progesterone receptor negative status; Z17.31 Human epidermal growth factor receptor 2 positive status; Z79.899 Other long term (current) drug therapy; Z92.21 Personal history of antineoplastic chemotherapy; Z87.01 Personal history of pneumonia (recurrent); Z80.0 Family history of malignant neoplasm of digestive organs; Z80.49 Family history of malignant neoplasm of other genital organs; Z80.41 Family history of malignant neoplasm of ovary
CPT/HCPCS: 32505; 36415; 71045; 80048; 80053; 81003; 82248; 83036; 83735; 83880; 85025; 85027; 85610; 86850; 86900; 86901; 86920; 87070; 88305; 88307; 88313; 93005

== ENCOUNTER → 2025-05-16 11:30 | Outpatient (REF) | payer BC, SELFPAY ==
[2025-05-16 12:59] LABS: Hematocrit 28.9 % (37.0-47.0); Hemoglobin 9.4 g/dL (12.0-16.0); Mean Corp Hgb Conc. 32.5 g/dL (33.0-37.0); Mean Corpuscular Volume 102.8 fL (81.0-99.0); Nucleated Red Blood Cells % 0 %; Platelet Count 209 10^3/uL (130-400); Red Cell Dist. Width 17.5 % (11.5-14.5)
[2025-05-16 13:13] LABS: ALT (SGPT) 105 U/L (0-35); AST (SGOT) 52 U/L (14-36); Albumin 4.2 g/dl (3.5-5.0); Alkaline Phosphatase 147 U/L (38-126); Blood Urea Nitrogen 16 mg/dl (7-17); Calcium 9.5 mg/dl (8.4-10.2); Carbon Dioxide 27 mmol/L (22-30); Chloride 106 mmol/L (98-107); Glucose 103 mg/dl (70-99); Potassium 4.9 mmol/L (3.5-5.1); Sodium 139 mmol/L (135-145); Total Protein 6.5 g/dl (6.3-8.2); eGFR > 60.00
== END ==
LOC: REG 11:30
PROVIDERS: ATTENDING PHYSICIAN Internal Medicine Hematology & Oncology; FAMILY PHYSICIAN Physician Assistant
DX: C50.112 Malignant neoplasm of central portion of left female breast (principal); R91.1 Solitary pulmonary nodule; C34.12 Malignant neoplasm of upper lobe, left bronchus or lung
CPT/HCPCS: 36415; 80053; 85025

== ENCOUNTER → 2025-05-17 09:18 | Outpatient (REF) | payer BC, SELFPAY | LOC: RAD 09:18 | PROVIDERS: ATTENDING PHYSICIAN Thoracic Surgery (Cardiothoracic Vascular Surgery); FAMILY PHYSICIAN Physician Assistant | DX: C34.92 Malignant neoplasm of unspecified part of left bronchus or lung (principal) | CPT/HCPCS: 71046 ==

== ENCOUNTER → 2025-05-23 08:52 | Outpatient (REF) | payer BC, SELFPAY ==
[2025-05-23 11:12] LABS: ALT (SGPT) 74 U/L (0-35); AST (SGOT) 35 U/L (14-36); Albumin 4.3 g/dl (3.5-5.0); Alkaline Phosphatase 156 U/L (38-126); Blood Urea Nitrogen 12 mg/dl (7-17); Calcium 9.9 mg/dl (8.4-10.2); Carbon Dioxide 24 mmol/L (22-30); Chloride 106 mmol/L (98-107); Glucose 116 mg/dl (70-99); Potassium 4.5 mmol/L (3.5-5.1); Sodium 139 mmol/L (135-145); Total Protein 6.6 g/dl (6.3-8.2); eGFR > 60.00
== END ==
LOC: REG 08:52
PROVIDERS: ATTENDING PHYSICIAN Nurse Practitioner Adult Health
DX: C50.112 Malignant neoplasm of central portion of left female breast (principal); R91.1 Solitary pulmonary nodule; C34.12 Malignant neoplasm of upper lobe, left bronchus or lung
CPT/HCPCS: 36415; 80053

== ENCOUNTER → 2025-06-07 07:57 | Outpatient (REF) | payer BC, SELFPAY | LOC: WDC 07:57 | PROVIDERS: ATTENDING PHYSICIAN Surgery; FAMILY PHYSICIAN Physician Assistant | DX: C50.412 Malignant neoplasm of upper-outer quadrant of left female breast (principal) | CPT/HCPCS: 19285; 38792; 76942; A4648; A9541 ==

== ENCOUNTER 2025-06-08 06:14 | Day surgery (SDC) | payer BC, SELFPAY ==
[2025-05-30 11:33] LABS: ALT (SGPT) 72 U/L (0-35); AST (SGOT) 38 U/L (14-36); Albumin 4.3 g/dl (3.5-5.0); Alkaline Phosphatase 144 U/L (38-126); Blood Urea Nitrogen 12 mg/dl (7-17); Calcium 9.9 mg/dl (8.4-10.2); Carbon Dioxide 27 mmol/L (22-30); Chloride 106 mmol/L (98-107); Glucose 100 mg/dl (70-99); Potassium 4.8 mmol/L (3.5-5.1); Sodium 140 mmol/L (135-145); Total Protein 6.9 g/dl (6.3-8.2); eGFR > 60.00
[2025-05-30 11:39] LABS: Prealbumin (Transthyretin) 30.6 mg/dl (17.6-36.0)
[2025-05-30 11:44] LABS: Hematocrit 33.5 % (37.0-47.0); Hemoglobin 10.7 g/dL (12.0-16.0); Mean Corp Hgb Conc. 31.9 g/dL (33.0-37.0); Mean Corpuscular Volume 99.4 fL (81.0-99.0); Nucleated Red Blood Cells % 0 %; Platelet Count 385 10^3/uL (130-400); Red Cell Dist. Width 14.7 % (11.5-14.5)
[2025-05-30 11:51] LABS: Vitamin D, 25-OH*** 16.6 ng/mL (30-80)
[2025-05-30 14:00] VITALS: BMI 28.8
[2025-06-08 11:44] VITALS: BP 126/80; BMI 28.8
[2025-06-08] MEDS: TYLENOL 1000 MG PO (11:53)
[2025-06-08] MEDS: LOVENOX 40 MG SC (13:38)
[2025-06-08] MEDS: NORMOSOL-R/PLASMALYTE-A 1000 IV (13:39)
[2025-06-08 15:58] VITALS: BP 109/69
[2025-06-08 16:00] VITALS: BP 109/75
--- NOTE | 2025-06-08 16:03 | W.IMMPOSTOP ---
Surgical Immed Post Op Note
-
Primary Surgeon: Carmelita
Assisting Surgeon: None
Pre-op Diagnosis: Left breast ca S/P neoadjuvant chemotherapy
Post-op Diagnosis: Same
Procedure Performed: Left localized lumpectomy, sentinel lymph node mapping and biopsy
Anesthesia Type: TIVA
Specimen / Cultures: Left lumectomy, margins, sentinel nodes
Estimated Blood Loss: 19cc
Complications: none
Operative Findings: clip and reflectors in lumpectomy
--- NOTE | 2025-06-08 16:04 | OR.RPT ---
Operative Report
Operative Report
Date of procedure: 06/08/2025
Preoperative diagnosis: Left breast carcinoma status post neoadjuvant chemotherapy
Postoperative diagnosis: Same
Surgeon: Carmelita
Procedure: Left localized lumpectomy and sentinel lymph node mapping and biopsy
The patient is a 49-year-old female who presented with hormone negative HER2 positive left breast carcinoma. She underwent neoadjuvant chemotherapy and presents now for definitive surgical treatment with localized lumpectomy and sentinel lymph node
mapping and biopsy. On the day prior to the procedure the patient presented to the [facility] where Roxie reflector was placed at the original tumor site and technetium radiotracer was injected into the breast parenchyma. On the day of
the procedure the patient presented to the same-day surgical services unit. She was prepped and verified site and procedures. DVT and antibiotic prophylaxis were provided.
She was transferred to the operating room and in the supine position intravenous sedation was delivered. The left breast and axilla were prepped and draped in usual sterile fashion. 1 cc of methylene blue was injected into the breast parenchyma
and external massage was applied for 5 minutes. An appropriate timeout was performed by all staff members. All tissues were anesthetized with 1% lidocaine plain.
Attention was first turned to the axilla where a curvilinear incision was made inferior to the hairline overlying the area of highest external gamma count. Dissection was carried through clavipectoral fascia and 3 sentinel node packets were
encountered and excised. Feeding vessels to the nodes were controlled with 3-0 silk tie. After the removal there was a greater than 4 fold reduction of background count. Hemostasis was verified. Marcaine 0.5% plain was applied and the wound was
closed using simple interrupted 3-0 plain on deep intermediate and subcutaneous tissue and skin was closed with a running subcuticular 4-0 Biosyn.
Attention was then turned to the lumpectomy where a curvilinear incision was made overlying the area of highest external Roxie signal. Skin flaps were elevated and a wide lumpectomy was performed using the cautery. Time out of body was noted. The
Roxie reflector became dislodged during the dissection this was sent under separate cover. The specimen was oriented for the pathologist and time out of body was noted. Specimen radiography confirmed the presence of the biopsy clip within it.
Additional margins were harvested from the posterior, medial, superior, lateral, inferior, and anterior dimensions. These were oriented as well. Hemostasis was verified. Hemoclips were placed in the resection cavity and Marcaine 0.5% plain was
instilled. This wound was closed in the same fashion as the axillary incision.
Surgical glue and sterile compressive dressings were applied. All sponge needle and instrument counts were correct and the patient was transferred to the recovery room in stable condition.
([id number])
[place] Node Bx Breast Cancer
[place] Node Bx Breast Cancer
Operation performed with curative intent: Yes
Tracer(s) to ID [place] Nodes in Non-Neoadjuvant setting: N/A
Tracer(s) to ID Sentinal Nodes in the Neoadjuvant Setting: Dye and Radioactive Tracer
All nodes at end of dye-filled Lymphatic Channel removed: Yes
All Significantly Radioactive Nodes were removed: Yes
All Palpably Suspicious Nodes were Removed: Yes
Bx Proven Pos Nodes Marked Prior to Chemo ID'd & Removed: N/A
[2025-06-08 16:15] VITALS: BP 116/69
[2025-06-08 16:30] VITALS: BP 124/71
== END 2025-06-08 16:55 | disposition home or self-care (01) ==
LOC: SDS 06:14
PROVIDERS: ATTENDING PHYSICIAN Surgery; FAMILY PHYSICIAN Physician Assistant
DX: C50.912 Malignant neoplasm of unspecified site of left female breast (principal); Z92.21 Personal history of antineoplastic chemotherapy; Z17.1 Estrogen receptor negative status [ER-]; N60.12 Diffuse cystic mastopathy of left breast
CPT/HCPCS: 38525; 19301; 38900; 36415; 76098; 80053; 82306; 84134; 85025; 88300; 88305; 88307; 88342; 93005; A4648

== ENCOUNTER → 2025-06-13 10:02 | Outpatient (REF) | payer BC, SELFPAY ==
[2025-06-13 10:53] LABS: Hematocrit 35.4 % (37.0-47.0); Hemoglobin 11.9 g/dL (12.0-16.0); Mean Corp Hgb Conc. 33.6 g/dL (33.0-37.0); Mean Corpuscular Volume 96.2 fL (81.0-99.0); Nucleated Red Blood Cells % 0 %; Platelet Count 354 10^3/uL (130-400); Red Cell Dist. Width 13.8 % (11.5-14.5)
[2025-06-13 11:33] LABS: ALT (SGPT) 41 U/L (0-35); AST (SGOT) 26 U/L (14-36); Albumin 4.5 g/dl (3.5-5.0); Alkaline Phosphatase 103 U/L (38-126); Blood Urea Nitrogen 15 mg/dl (7-17); Calcium 10.1 mg/dl (8.4-10.2); Carbon Dioxide 26 mmol/L (22-30); Chloride 106 mmol/L (98-107); Glucose 110 mg/dl (70-99); Potassium 4.4 mmol/L (3.5-5.1); Sodium 140 mmol/L (135-145); Total Protein 7.0 g/dl (6.3-8.2); eGFR > 60.00
== END ==
LOC: REG 10:02
PROVIDERS: ATTENDING PHYSICIAN Internal Medicine Hematology & Oncology; FAMILY PHYSICIAN Physician Assistant
DX: C50.112 Malignant neoplasm of central portion of left female breast (principal); R91.1 Solitary pulmonary nodule
CPT/HCPCS: 36415; 80053; 85025

== ENCOUNTER → 2025-07-04 09:47 | Outpatient (REF) | payer BC, SELFPAY ==
[2025-07-04 10:43] LABS: Hematocrit 36.3 % (37.0-47.0); Hemoglobin 11.6 g/dL (12.0-16.0); Mean Corp Hgb Conc. 32.0 g/dL (33.0-37.0); Mean Corpuscular Volume 93.3 fL (81.0-99.0); Nucleated Red Blood Cells % 0 %; Platelet Count 355 10^3/uL (130-400); Red Cell Dist. Width 13.6 % (11.5-14.5)
[2025-07-04 11:07] LABS: HCG, Urine Qualitative Screen Negative
[2025-07-04 11:11] LABS: ALT (SGPT) 28 U/L (0-35); AST (SGOT) 23 U/L (14-36); Albumin 4.3 g/dl (3.5-5.0); Alkaline Phosphatase 92 U/L (38-126); Blood Urea Nitrogen 15 mg/dl (7-17); Calcium 9.7 mg/dl (8.4-10.2); Carbon Dioxide 26 mmol/L (22-30); Chloride 106 mmol/L (98-107); Glucose 105 mg/dl (70-99); Potassium 4.6 mmol/L (3.5-5.1); Sodium 140 mmol/L (135-145); Total Protein 6.8 g/dl (6.3-8.2); eGFR > 60.00
[2025-07-04 11:27] LABS: Vitamin D, 25-OH*** 41.6 ng/mL (30-80)
== END ==
LOC: REG 09:47
PROVIDERS: ATTENDING PHYSICIAN Surgery; FAMILY PHYSICIAN Physician Assistant; OTHER PHYSICIAN Internal Medicine Hematology & Oncology; REFERRING PHYSICIAN Radiology Radiation Oncology
DX: E55.9 Vitamin D deficiency, unspecified (principal); C50.112 Malignant neoplasm of central portion of left female breast; C34.12 Malignant neoplasm of upper lobe, left bronchus or lung; C50.812 Malignant neoplasm of overlapping sites of left female breast; Z17.1 Estrogen receptor negative status [ER-]
CPT/HCPCS: 36415; 80053; 81025; 82306; 85025

== ENCOUNTER 2025-07-11 06:09 | Day surgery (SDC) | payer BC, SELFPAY ==
[2025-07-11 13:50] VITALS: BMI 28.8
[2025-07-11 13:51] VITALS: BP 119/75
[2025-07-11] MEDS: TYLENOL 1000 MG PO (13:54)
[2025-07-11] MEDS: NORMOSOL-R/PLASMALYTE-A 1000 IV (13:55)
[2025-07-11] MEDS: LOVENOX 40 MG SC (15:19)
[2025-07-11 16:49] VITALS: BP 128/73
[2025-07-11 17:00] VITALS: BP 122/73
[2025-07-11 17:15] VITALS: BP 126/72
--- NOTE | 2025-07-11 17:16 | W.IMMPOSTOP ---
Surgical Immed Post Op Note
-
Primary Surgeon: Carmelita
Assisting Surgeon: None
Pre-op Diagnosis: Left breast ca
Post-op Diagnosis: Left breast ca
Procedure Performed: Removal right port
Anesthesia Type: TIVA
Specimen / Cultures: None
Estimated Blood Loss: 2cc
Complications: None
Operative Findings: None
--- NOTE | 2025-07-11 17:17 | OR.RPT ---
Operative Report
Operative Report
Date of procedure: 07/11/2025
Surgeon: Carmelita
Preoperative diagnosis: Left breast carcinoma
Postoperative diagnosis: Left breast carcinoma
Procedure: Removal of right Port-A-Cath
The patient is a 50-year-old female who completed adjuvant chemotherapy treatment and presents for right Port-A-Cath removal. She presented to the same-day surgical services unit. She was prepped and verified site and procedure. DVT and
antibiotic prophylaxis were provided. She was taken to the operating room and in the supine position intravenous sedation was delivered. The right chest was prepped and draped in the usual sterile fashion. An appropriate timeout procedure was
performed by all staff members.
All tissues were anesthetized with 1% lidocaine plain. the previous insertion site incision was entered sharply with the blade. Dissection was carried down to the catheter pocket using the cautery. The catheter was removed from the vascular tract
and was intact. The vascular tract was suture-ligated with a 3-0 plain gut suture ligature. The port was removed and discarded. Hemostasis was maintained with the cautery. Marcaine 0.5% plain was instilled into all tissues. The wound was closed
using simple interrupted 3-0 plain on deep and subcutaneous tissues and skin was closed using a running subcuticular 4 Monocryl. Surgical glue and a sterile compressive dressing was applied. All sponge needle and instrument counts were correct and
the patient was transferred to the recovery room in stable condition.
([id number])
== END 2025-07-11 17:59 | disposition home or self-care (01) ==
LOC: SDS 06:09
PROVIDERS: ATTENDING PHYSICIAN Surgery
DX: C50.912 Malignant neoplasm of unspecified site of left female breast (principal); Z92.21 Personal history of antineoplastic chemotherapy
CPT/HCPCS: 36590; 81025

== ENCOUNTER → 2025-07-12 09:23 | Outpatient (REF) | payer BC, SELFPAY | LOC: RCS 09:23 | PROVIDERS: ATTENDING PHYSICIAN Internal Medicine Cardiovascular Disease; FAMILY PHYSICIAN Physician Assistant; REFERRING PHYSICIAN Internal Medicine Hematology & Oncology | DX: C50.412 Malignant neoplasm of upper-outer quadrant of left female breast (principal); T45.1X5D Adverse effect of antineoplastic and immunosuppressive drugs, subsequent encounter | CPT/HCPCS: 93306; 93356 ==

== ENCOUNTER → 2025-07-23 14:02 | Outpatient (REF) | payer BC, SELFPAY ==
[2025-07-23 14:58] LABS: Hematocrit 35.9 % (37.0-47.0); Hemoglobin 11.5 g/dL (12.0-16.0); Mean Corp Hgb Conc. 32.0 g/dL (33.0-37.0); Mean Corpuscular Volume 89.5 fL (81.0-99.0); Nucleated Red Blood Cells % 0 %; Platelet Count 378 10^3/uL (130-400); Red Cell Dist. Width 13.6 % (11.5-14.5)
[2025-07-23 15:20] LABS: ALT (SGPT) 27 U/L (0-35); AST (SGOT) 21 U/L (14-36); Albumin 4.4 g/dl (3.5-5.0); Alkaline Phosphatase 82 U/L (38-126); Blood Urea Nitrogen 14 mg/dl (7-17); Calcium 9.5 mg/dl (8.4-10.2); Carbon Dioxide 28 mmol/L (22-30); Chloride 102 mmol/L (98-107); Glucose 99 mg/dl (70-99); Potassium 4.4 mmol/L (3.5-5.1); Sodium 136 mmol/L (135-145); Total Protein 6.9 g/dl (6.3-8.2); eGFR > 60.00
== END ==
LOC: REG 14:02
PROVIDERS: ATTENDING PHYSICIAN Internal Medicine Hematology & Oncology; FAMILY PHYSICIAN Physician Assistant
DX: C50.112 Malignant neoplasm of central portion of left female breast (principal); C34.12 Malignant neoplasm of upper lobe, left bronchus or lung
CPT/HCPCS: 36415; 80053; 85025

== ENCOUNTER → 2025-08-15 11:25 | Outpatient (REF) | payer BC, SELFPAY ==
[2025-08-15 12:07] LABS: Hematocrit 36.0 % (37.0-47.0); Hemoglobin 11.8 g/dL (12.0-16.0); Mean Corp Hgb Conc. 32.8 g/dL (33.0-37.0); Mean Corpuscular Volume 85.3 fL (81.0-99.0); Nucleated Red Blood Cells % 0 %; Platelet Count 354 10^3/uL (130-400); Red Cell Dist. Width 13.6 % (11.5-14.5)
[2025-08-15 12:50] LABS: ALT (SGPT) 23 U/L (0-35); AST (SGOT) 21 U/L (14-36); Albumin 4.4 g/dl (3.5-5.0); Alkaline Phosphatase 69 U/L (38-126); Blood Urea Nitrogen 13 mg/dl (7-17); Calcium 9.3 mg/dl (8.4-10.2); Carbon Dioxide 25 mmol/L (22-30); Chloride 104 mmol/L (98-107); Glucose 106 mg/dl (70-99); Potassium 4.3 mmol/L (3.5-5.1); Sodium 136 mmol/L (135-145); Total Protein 6.8 g/dl (6.3-8.2); eGFR > 60.00
== END ==
LOC: REG 11:25
PROVIDERS: ATTENDING PHYSICIAN Internal Medicine Hematology & Oncology; FAMILY PHYSICIAN Physician Assistant
DX: C50.112 Malignant neoplasm of central portion of left female breast (principal); C34.12 Malignant neoplasm of upper lobe, left bronchus or lung
CPT/HCPCS: 36415; 80053; 85025

== ENCOUNTER → 2025-08-24 16:03 | Outpatient (REF) | payer BC, SELFPAY | LOC: RAD 16:03 | PROVIDERS: ATTENDING PHYSICIAN Nurse Practitioner Adult Health; FAMILY PHYSICIAN Physician Assistant | DX: C50.112 Malignant neoplasm of central portion of left female breast (principal); C34.12 Malignant neoplasm of upper lobe, left bronchus or lung | CPT/HCPCS: 71260; Q9967 ==

== ENCOUNTER → 2025-09-05 11:56 | Outpatient (REF) | payer BC, SELFPAY ==
[2025-09-05 13:07] LABS: Hematocrit 39.3 % (37.0-47.0); Hemoglobin 13.0 g/dL (12.0-16.0); Mean Corp Hgb Conc. 33.1 g/dL (33.0-37.0); Mean Corpuscular Volume 84.5 fL (81.0-99.0); Nucleated Red Blood Cells % 0 %; Platelet Count 358 10^3/uL (130-400); Red Cell Dist. Width 13.5 % (11.5-14.5)
[2025-09-05 15:54] LABS: ALT (SGPT) 47 U/L (0-35); AST (SGOT) 32 U/L (14-36); Albumin 4.6 g/dl (3.5-5.0); Alkaline Phosphatase 108 U/L (38-126); Blood Urea Nitrogen 15 mg/dl (7-17); Calcium 9.7 mg/dl (8.4-10.2); Carbon Dioxide 25 mmol/L (22-30); Chloride 102 mmol/L (98-107); Glucose 100 mg/dl (70-99); Potassium 4.7 mmol/L (3.5-5.1); Sodium 137 mmol/L (135-145); Total Protein 7.3 g/dl (6.3-8.2); eGFR > 60.00
[2025-09-06 19:26] LABS: CA 125 7.2 U/mL (0-35)
== END ==
LOC: REG 11:56
PROVIDERS: ATTENDING PHYSICIAN Internal Medicine Hematology & Oncology; FAMILY PHYSICIAN Physician Assistant
DX: C50.112 Malignant neoplasm of central portion of left female breast (principal); C34.12 Malignant neoplasm of upper lobe, left bronchus or lung
CPT/HCPCS: 36415; 80053; 85025; 86304